=== PATIENT | male | born 1975 | race African-American/Black ===

== ENCOUNTER 2023-04-12 21:08 | Emergency (ER) | payer OTHER ==
[~2023-04-12] VITALS: Ht 170.2 cm; Wt 78.0 kg
[2023-04-12 21:16] VITALS: O2SAT 100
[2023-04-12] MEDS ORDERED: IBUPROFEN 600MG TABLET PO ONE (23:00)
[2023-04-12] MEDS ORDERED: BACITRACIN ZINC OINT UDPKT TOP ONE (23:00)
[2023-04-12] MEDS ORDERED: LIDOCAINE HCL/PF 1% 10 MG/ML 5ML VIAL INFIL ONE (23:00)
[2023-04-13] MEDS ORDERED: LIDOCAINE HCL/PF 1% 10 MG/ML 5ML VIAL INFIL ONE (00:30)
[2023-04-13 01:05] VITALS: BP 129/89; PULSE 85; RESP 16; TEMP 98.9
== END 2023-04-13 01:25 | disposition home or self-care (01) ==
LOC: ER 21:08
DX: S61.210A Laceration without foreign body of right index finger without damage to nail, initial encounter (principal); W26.9XXA Contact with unspecified sharp object(s), initial encounter; Y93.89 Activity, other specified; Y92.89 Other specified places as the place of occurrence of the external cause; Y99.8 Other external cause status
CPT/HCPCS: 12001; 99283; J3490 ×2; Z7610 ×3

== ENCOUNTER 2023-04-14 16:35 | Emergency (ER) | payer OTHER ==
[~2023-04-14] VITALS: Ht 177.8 cm; Wt 86.0 kg
[2023-04-14 16:48] VITALS: BP 131/91; PULSE 78; RESP 20; TEMP 98.1; O2SAT 100
== END 2023-04-14 18:20 | disposition home or self-care (01) ==
LOC: ER 16:35
DX: S61.210D Laceration without foreign body of right index finger without damage to nail, subsequent encounter (principal); Z48.00 Encounter for change or removal of nonsurgical wound dressing; X58.XXXD Exposure to other specified factors, subsequent encounter
CPT/HCPCS: 99281